=== PATIENT | male | born 1940 | race Hispanic/Latino ===

== ENCOUNTER 2024-08-16 13:33 | Day surgery (SDC) | payer MEDICARE ==
[2024-08-14 13:03] LABS: BASOPHILS % 0.4 % (0.0-1.0); EOSINOPHILS % 2.5 % (0.0-6.0); LYMPHOCYTES % 35.9 % (18.0-39.1); MONOCYTES % 8.2 % (4.4-11.3); NEUTROPHILS % 52.6 % (38.7-80.0); RED CELL DISTRIBUTION WIDTH 13.0 % (11.7-14.4)
[2024-08-14 13:31] LABS: INR 0.98
[2024-08-14 13:45] LABS: EST GLOMERULAR FILTRATION RATE 88.0 ML/MIN (>=60)
[~2024-08-16] VITALS: Ht 162.6 cm; Wt 73.0 kg
[2024-08-16] VITALS (11 sets, daily range): BP systolic 120–159; BP diastolic 66–90; PULSE 60–65; RESP 13–18; TEMP 96.8–98; O2SAT 99–100
[2024-08-16] MEDS ORDERED: AMLODIPINE BESYL5 MG PO (14:23)
[2024-08-16] MEDS ORDERED: FLOMAX0.4 MG PO (14:23)
[2024-08-16] MEDS ORDERED: SIMVASTATIN20 MG PO (14:23)
[2024-08-16] MEDS ORDERED: ASPIRIN EC81 MG PO (14:23)
[2024-08-16] MEDS ORDERED: HEPARIN SOD (PORCINE) 1000 UNIT/ML 30ML ONE (16:24)
[2024-08-16] MEDS ORDERED: HEPARIN SOD/SOD CHLORIDE 2,000 ML ONE (16:24)
[2024-08-16] MEDS ORDERED: VERAPAMIL HCL 2.5 MG/ML 2 ML VIAL ONE (16:24)
[2024-08-16] MEDS ORDERED: LIDOCAINE HCL 2% LOCAL 20 ML VIAL ONE (16:24)
[2024-08-16] MEDS ORDERED: SODIUM CHLORIDE 0.9% 1000ML 1,000 ML ONE (16:25)
[2024-08-16] MEDS ORDERED: IOPAMIDOL 370 MG/ML 100 ML INFUS..BTL INJ ONE (16:25)
[2024-08-16] MEDS ORDERED: MIDAZOLAM HCL 2 MG/2 ML VIAL ONE (16:27)
[2024-08-16] MEDS ORDERED: FENTANYL CITRATE/PF 100MCG/2 ML INJ ONE (16:27)
== END 2024-08-16 20:05 | disposition home or self-care (01) ==
LOC: CATH LAB 13:33
PROVIDERS: ATTEND Internal Medicine Cardiovascular Disease
DX: I70.213 Atherosclerosis of native arteries of extremities with intermittent claudication, bilateral legs (principal); I70.92 Chronic total occlusion of artery of the extremities; E78.00 Pure hypercholesterolemia, unspecified; I10 Essential (primary) hypertension; Z95.0 Presence of cardiac pacemaker; Z79.82 Long term (current) use of aspirin; Z01.812 Encounter for preprocedural laboratory examination; Z87.891 Personal history of nicotine dependence
CPT/HCPCS: 36246; 36415; 75625; 75716; 76937; 80053; 85025; 85610; C1760; C1769 ×2; C1887; C1894; J1644; J2003; J2250; J3010; J7030; Q9967; 75630; 99152; 99153